=== PATIENT | female | born 1950 | race Caucasian/White ===

== ENCOUNTER 2020-07-15 09:44 | Inpatient (IN) | payer OTHER ==
[~2020-07-15] VITALS: Ht 154.9 cm; Wt 70.9 kg
[2020-07-15 10:05] LABS: ABSOLUTE NEUTROPHILS 9.1 thou/uL (1.4-8.2); BASOPHILS 0.4 % (0.0-2.0); HEMATOCRIT 42.7 % (37.0-47.0); HEMOGLOBIN 14.4 gm/dL (12.0-15.0); LYMPHOCYTES 10.3 % (24.0-44.0); MCH 31.4 pg (26.0-34.0); MCHC 33.7 g/dL (28.0-37.0); PLATELET COUNT 244 thou/uL (150-400); POLYS 79.3 % (36.0-66.0); RBC 4.59 mil/uL (4.20-5.00); RDW 12.8 % (10.5-14.5); WBC 11.5 thou/uL (4.0-11.0)
[2020-07-15 10:21] LABS: ANION GAP 13 mmol/L (7-16); BUN 20 mg/dL (7-18); CALCIUM 9.3 mg/dL (8.5-10.1); CHLORIDE 106 mmol/L (98-107); CO2 22 mmol/L (21-32); CREATININE 0.8 mg/dL (0.6-1.0); GLUCOSE 112 mg/dL (74-106); POTASSIUM 3.8 mmol/L (3.5-5.1); SODIUM 141 mmol/L (136-145)
[2020-07-15 10:29] LABS: ALBUMIN 3.4 g/dL (3.4-5.0); SGOT 18 U/L (15-37); SGPT 23 U/L (14-59); TOTAL BILIRUBIN 0.6 mg/dL (0.2-1.0); TOTAL PROTEIN 6.9 g/dL (6.4-8.2); TROPONIN-I <0.06 ng/mL (<0.06)
[2020-07-15 11:34] LABS: URINE BLOOD TRACE (Negative); URINE CLARITY CLEAR; URINE COLOR YELLOW; URINE GLUCOSE-RANDOM* NEGATIVE (Negative); URINE KETONES 3+ (Negative); URINE LEUKOCYTES-REFLEX NEGATIVE (Negative); URINE NITRITE-REFLEX NEGATIVE (Negative); URINE PROTEIN (DIPSTICK) NEGATIVE (Negative); URINE SPECIFIC GRAVITY >= 1.030 (1.005-1.035); URINE UROBILINOGEN 0.2 E.U./dl (0.2-1.0)
[2020-07-15 11:37] LABS: ICTOTEST (BILI CONFIRMATORY) Negative (Negative); URINE BILIRUBIN NEGATIVE (Negative)
[2020-07-15 11:38] LABS: URINE REDUCING SUBSTANCE NEGATIVE
--- NOTE | 2020-07-15 12:08 | EKG ---
[address] [address] [address] [place] [address] ELECTROCARDIOGRAM REPORT Name: FRANCINE WATT [id number] Admission: 07/15/20 Attend Phys: Discharge: Date of : 48 Report #: [id number] [facility] ED Test Date: 2020-07-15 Test Time: 10:11:44 Pat Name: FRANCINE WATT Department: Room: Gender: F Broadcast Supervisor: Chepe LEARY : 1950 Requested By: Gabriel Mac Order Number: [id number] MD: Rob Mooney Measurements Intervals [place] Rate: 66 P: 11 [place]: 154 QRS: -11 QRSD: 94 T: 254 QT: 497 QTc: 521 Interpretive Statements Sinus rhythm RSR' in V1 or V2, probably normal variant Abnormal T, probable ischemia, widespread Prolonged QT interval Compared to ECG 12/16/2001 11:14:16 RSR' in V1 or V2 now present T-wave abnormality now present Possible ischemia now present Prolonged QT interval now present Electronically Signed On 07-15-2020 12:07:52 CDT by Rob Mooney [email or web address] <ELECTRONICALLY SIGNED> By: Rob Mooney MD, FACC 07/15/20 1207 1011 1011 Rob Mooney MD, [facility] /EPI
[2020-07-15 12:49] VITALS: BP 141/57
[2020-07-15 15:57] LABS: PROTIME 10.4 Seconds (9.3-11.4)
--- NOTE | 2020-07-15 18:45 | NUR ---
Received pt fron the ED, lert and oriented x 4. Pt is bed bound pain is severe and very small movements cause severe pain confirmed T12 compression. Seen by IR (Dr. Kerr) for MRI and Kypho / Vertibroplasty tomorrow. CAR RETARDER OPERATOR manged care today and all other intervention aside from admission system assessment.
[2020-07-15 19:11] VITALS: BP 136/63
--- NOTE | 2020-07-15 19:40 | NUR ---
ASSUMED CARE OF PT FROM ER AT 1357 THIS AFTERNOON. PT IS A/OX4, STATED SHE WAS IN HER BED AND UNABLE TO MOVE FOR 4 DAYS. PT IS DEHYDRATED AND MALNURISHED DUE TO INABILILTY TO EAT OR DRINK. EYES PERRLA, LUNGS CLEAR ALL LOBES, SKIN INTACT AND TENTING. PAIN RATED AT A 3 ON 1/10 SCALE IN LOWER BACK WHERE T12 IS FX'D. 10 [address] MOVING. SCD'S IN PLACE, VSS, ASSESSMENT OTHERWISE UNREMARKABLE. PT HAS CALL LIGHT AND OTHER NEEDS WITHIN REACH.
[2020-07-15] MEDS ORDERED: TOPAMAX 25 MG T25 M1 PO (20:36)
[2020-07-15] MEDS ORDERED: METOPROLOL SUC100 MG PO (20:36)
[2020-07-15] MEDS ORDERED: LEVOTHYROXINE100 MCG PO (20:37)
[2020-07-15] MEDS ORDERED: ALPRAZOLAM2 MG PO (20:38)
[2020-07-15] MEDS ORDERED: BUPROPION HCL150 M1 PO (20:40)
[2020-07-16] VITALS (10 sets, daily range): BP systolic 107–185; BP diastolic 54–114
--- NOTE | 2020-07-16 00:55 | NUR ---
ASSESSED AT STARTOF SHIFT 1899, PT RESTING IN BED RATES PAIN10/10 WITH MOVEMENT HYDROCODONE GIVEN. PT HAD A BM THIS SHIFT SOFT AND BLACK STOOL NOTED. IV INTACT AND FLUIDS INFUISING. PT ON fall PREC MAINTAINED AND CALL LIGHT AT REACH. PT TO HAVE MRI TOMORROW. WILL CONT TO MONITOR.
[2020-07-16 05:36] LABS: HEMATOCRIT 38.7 % (37.0-47.0); HEMOGLOBIN 12.8 gm/dL (12.0-15.0); MCH 31.4 pg (26.0-34.0); MCHC 33.2 g/dL (28.0-37.0); MCV 94.5 fL (80.0-100.0); RBC 4.09 mil/uL (4.20-5.00); RDW 12.9 % (10.5-14.5); WBC 7.7 thou/uL (4.0-11.0)
[2020-07-16 06:29] LABS: CALCIUM 8.2 mg/dL (8.5-10.1); CREATININE 0.8 mg/dL (0.6-1.0); POTASSIUM 3.7 mmol/L (3.5-5.1)
--- NOTE | 2020-07-16 10:48 | NUR ---
ASSESSMENT: CM REVIEWED CHART AND SPOKE WITH PATIENT. PT WAS ADMITTED AFTER A FALL ABOUT 5 DAYS AGO AND HAS A COMPRESSION FX. PT LIVES IN A HOUSE ALONE. PT REPORTS HAVING ABOUT 2 STEPS WITH NO HANDRAILS TO ENTER. PT REPORTS ABOUT 14 STEPS WITH HANDRAILS TO GET TO HER BEDROOM. PT REPORTS SHE NORMALLY AMBULATES INDEPENDENTLY BUT DOES HAVE HER MOMS OLD WALKER IF NEEDED. PT REPORTS THAT SHE HAS NO HX OF HH OR SNF. PT REPORTS THAT HER SON LIVES IN [place] AND SINCE SHE FELL SHE THINKS HE IS COMING INTO TOWN. CM ATTEMPTED TO REACH HER SON MEENA BUT UNABLE TO AND VM WAS LEFT. PT ALSO HAD A CT COMPLETED AND AN OVARIAN MASS WAS FOUND THAT IS CONCERNING. ONCOLOGY IS CONSULTED. PLANS ARE FOR LIKELY KYPHO TODAY AFTER MRI. PT/OT PENDING UNTIL KYO. CM DISCUSSED POSSIBLE NEED FOR HH/SNF AND PT STATES SHE WILL SEE HOW SHE DOES POST SURGERY. CM WILL CONTINUE TO FOLLOW TO ASSIST NEEDED.
--- NOTE | 2020-07-16 12:45 | NUR ---
PT ALERT AND ORIENTED TIMES FOUR. VSS. PT C/O BACK PAIN. PRN PAIN MEDICATIONS GIVEN WITH SOME RELEIF AT THE START OF THE SHIFT. PT CURRENTLY OFF THE UNIT FOR MRI AND KYPHOPLASTY. WILL CONTINUE TO MONITOR.
--- NOTE | 2020-07-16 12:57 | NUR ---
SD POST KYPHOPLASTY. TOLERATED PROCEDURE WELL. VSS. REPORT CALLED TO BENITA. PT TRX TO ROOM STABLE CONDITION.
--- NOTE | 2020-07-16 13:17 | NUR ---
ASSESSMENT: CM REVIEWED CHART AND SPOKE WITH PATIENT. PT WAS ADMITTED AFTER A FALL ABOUT 5 DAYS AGO AND HAS A COMPRESSION FX. PT LIVES IN A HOUSE ALONE. PT REPORTS HAVING ABOUT 2 STEPS WITH NO HANDRAILS TO ENTER. PT REPORTS ABOUT 14 STEPS WITH HANDRAILS TO GET TO HER BEDROOM. PT REPORTS SHE NORMALLY AMBULATES INDEPENDENTLY BUT DOES HAVE HER MOMS OLD WALKER IF NEEDED. PT REPORTS THAT SHE HAS NO HX OF HH OR SNF. PT REPORTS THAT HER SON LIVES IN [place] AND SINCE SHE FELL SHE THINKS HE IS COMING INTO TOWN. CM ATTEMPTED TO REACH HER SON MEENA BUT UNABLE TO AND VM WAS LEFT. PT ALSO HAD A CT COMPLETED AND AN OVARIAN MASS WAS FOUND THAT IS CONCERNING. ONCOLOGY IS CONSULTED. PLANS ARE FOR LIKELY KYPHO TODAY AFTER MRI. PT/OT PENDING UNTIL KYO. CM DISCUSSED POSSIBLE NEED FOR HH/SNF AND PT STATES SHE WILL SEE HOW SHE DOES POST SURGERY. CM WILL CONTINUE TO FOLLOW TO ASSIST NEEDED.
--- NOTE | 2020-07-17 03:55 | NUR ---
RECEIVED CARE OF THIS PATIENT AT 1900. PATIENT ALERT AND ORIENTED X4 AT BEGINNING OF SHIFT. SHIFT CONTINUED PATIENT BECAME VERY AGITATED AND ANXIOUS. ACUSED NURSE OF LYING TO HER, CALLING HER A LYER AND TRYING TO POISEN HER. WOULD NOT LISTEN TO NURSE WHEN TRIED TO EXPLAIN THINGS TO HER. TOOK WHAT THE NURSE SAID AND TWISTED THE WORDS. HIM TECH WAS TALKING WITH PATIENT FOR SEVERAL MINUTES. PATIENT ACUSED NURSE OF NOT WANTING TO GIVE HER PAIN MED. GAVE IT EVERY TIME IT WAS ASKED FOR. PATIENT DID NOT SLEEP MUCH THIS SHIFT.
[2020-07-17 09:49] VITALS: BP 119/54
--- NOTE | 2020-07-17 10:47 | NUR ---
Pt transferred from PACU this am. Denies pain. 3 Lap sites clean, dry, and well-approximated. Talked to pt's family and updated on pt's status. On 2L O2. Vital signs stable. Physical therapy will work with patient. Family at bedside. Call light within reach. Will continue to monitor.
[2020-07-17 11:24] VITALS: BP 110/87
--- NOTE | 2020-07-17 13:37 | NUR ---
ON-GOING ASSESSMENT: CM REVIEWED CHART AND SPOKE WITH PATIENT AND HER SON. PT HAD KYPHOPLASTY YESTERDAY AND WAS DOWN HAVING BIOPSY THIS AM AND AWAITING PATHOLOGY. PHYSICAL THEARPY WORKED WITH PATIENT AND RECOMMENDING POST ACUTE CARE. CM SPOKE WITH PT AND HER SON MEENA ABOUT POST ACUTE CARE AT THE BEDSIDE AND PROVIDED THEM WITH A SNF LIST TO REVIEW WITH POSSIBLE OPTIONS. SON MEENA CAN BE REACHED AT [phone] (HE CURRENTLY CAME IN TOWN FROM [place] WHERE HE LIVES TO ASSIST NEEDED).
[2020-07-17 17:09] VITALS: BP 146/64
[2020-07-17 19:18] VITALS: BP 150/57
--- NOTE | 2020-07-18 04:26 | NUR ---
AASUMED PT CARE AT 1900.PT WAS ALERT/CONFUSED/PARANOID AND WAS VISIBLY UPSET AT SHIFT CHANGE.PT C/O HOW HER NIGHT WAS THE PREVIOUS ALL NIGHT.PT CALLED HER FRIEND AT HOME A COUPLE OF TIMES TELLING HER THAT SHE WANTS TO GO HOME.PT'S FRIEND CALLS THE FACILITY EACH TIME TO RELAY THE MESSAGE.PT'S FRIEND CONCERNED ABOUT HER ACTIONS STATED THAT IT WAS UNLIKE HER TO BEHAVE THAT WAY.THIS NURSE REASSURED PT'S FRIEND THAT SHE WILL BE TAKEN GOOD CARE OF.PT WAS NOTED TO HAVE INCREASED ANXIETY SHE TRIES TO REMEMBER IF SHE HAS HAD HER SURGERY.PT WAS INFORMED THAT THE SURGERY HAD BEEN DONE.HEAVY CLEANER [employer] NOTIFIED THAT PT IS REQUESTING FOR HER XANAX,ORDER NOTED AND CARRIED OUT.PT ASLEEP ON HER BED AT THIS TIME.PT PULLED HER IV OUT EARLIER THIS SHIFT DUE TO HER ANXIETY,WILL REPLACE.CALL LIGHT WITHIN REACH.
[2020-07-18 06:43] VITALS: BP 137/63
[2020-07-18 07:10] VITALS: BP 140/57
[2020-07-18 09:24] LABS: HEMATOCRIT 36.5 % (37.0-47.0); HEMOGLOBIN 12.2 gm/dL (12.0-15.0); MCH 31.3 pg (26.0-34.0); MCHC 33.3 g/dL (28.0-37.0); MCV 93.9 fL (80.0-100.0); RBC 3.89 mil/uL (4.20-5.00); WBC 8.9 thou/uL (4.0-11.0)
[2020-07-18 09:47] LABS: CALCIUM 8.8 mg/dL (8.5-10.1); CREATININE 0.7 mg/dL (0.6-1.0); POTASSIUM 3.4 mmol/L (3.5-5.1)
--- NOTE | 2020-07-18 12:09 | NUR ---
ON-GOING ASSESSMENT: CM REVIEWED CHART AND SPOKE WITH PT AND HER SON. UPDATES WERE FAXED TO [employer] [facility] WHO HAS ALREADY STARTED THE AUTH PROCESS AND AWAITING A RESPONSE FROM INSURANCE AT THIS TIME. CM ALSO FAXED INFORMATION TO [employer] AND CONFIRMED THEY RECEIVED IT. [facility] AWAITING INPUT FROM INSURANCE. CAMI BARBOSA CAN BE REACHED AT [phone] AND CAN ACCEPT OVER THE WEEKEND IF THEY GET AUTH. [facility] CAN FACILITATE DISCHARGE IF AUTH IS RECEIVED OVER THE WEEKEND. CHART COPY WILL NEED TO BE SENT WITH PATIENT. PATIENTS SON MEENA CAN BE REACHED AT [phone], HE IS UPDATED ON THE PLAN AND WANTS TO BE CONTACTED IF PATIENT IS ABLE TO DISCHARGE. [facility] IS ABLE TO DISCHARGE OVER THE WEEKEND REPORT WILL NEED TO BE CALLED AND DISCHARGE PAPERWORK FAXED TO THE NUMBER BELOW. [email or web address] [id number] [facility] FAX:[phone]
--- NOTE | 2020-07-18 14:57 | NUR ---
ON-GOING ASSESSMENT: CM REVIEWED CHART. ANGÉLICA SPOKE WITH LIASON FROM [facility] WHO REPORTS THEY HAVE INSURANCE AUTH BUT CANNOT ACCEPT PATIENT UNTIL TOMORROW. THEY REQUEST TO [employer] AT 2PM TOMORROW 07/19/20. CM NOTIFIED BEDSIDE RN TO PASS ON TO OTHER RN. CM ALSO NOTIFIED ATTENDING TODAY. DISCHARGE ORDERS WILL NEED TO BE FAXED TO [phone] AND REPORT CALLED TO [phone]. CM NOTIFIED PT AND SON MEENA OF DISCHARGE. CHART COPY WILL NEED TO BE SENT WITH PATIENT. TRANSPORATION IS ARRANGED FOR 2PM, IF ANYTHING CHANGES CONTACT ADMISSIONS PHONE [phone].
--- NOTE | 2020-07-18 20:11 | NUR ---
ASSUMED CARE OF PATIENT AT SHIFT CHANGE. ASSESSMENT CHARTED. MEDS ADMINISTERED PER EMAR. VSS. PATIENT A&OX3-4 WITH SOME CONFUSION AND FORGETFULNESS. PATIENT VOICES PAIN 7/10 ON BACK RELIEVED BY PRN PO ANALGESIC. PATIENT WORKED W THX AND IS NOW AMBULATING SBA AND TOLERATING WELL. PATIENT CLEARED TO D/C TOMORROW W [facility] SCHEDULED PICKUP TIME AT 1400. IV IS OUT. ENDORSED TO OCTAVIA MELENDEZ.
[2020-07-18 20:50] VITALS: BP 160/73
--- NOTE | 2020-07-19 03:06 | NUR ---
PT WAS FRUSTRATED WITH NOT GETTING HER MECLIZINE BID AT START OF SHIFT.MED RECOINCILED AND RESTARTED BY AM NURSE.PT UP WITH ASSIST AND GB,GOOD ENDURANCE NOTED.PT C/O PAIN ON HER BACK AND ABD,MANAGED WITH MED.DRSG TO HER BACK AND ABD DRY AND INTACT.PT LOOKING FORWARD TO BE DC'S LATER IN THE DAY.CALL LIGHT WITHIN REACH.
[2020-07-19 08:13] VITALS: BP 154/68
[2020-07-19] MEDS ORDERED: HYDROCODON-ACE1 EAC7 PO (11:09)
--- NOTE | 2020-07-19 13:16 | NUR ---
ASSUMED PT CARE AROUND 0715. PT ALERT X ORIENTED 3-4, FORGETFUL AND CONFUSED. ON ROOM AIR. BRUISE IN LEFT HAND FROM ATTEMPTING IV. HAD A BM TODAY. GETTING DISCHARGED TO [facility]. RN CALLED THE FACILITY AND GAVE PT REPORT TO CHANDANA, THE NURSE AND THE ADMISSION WATER SPONGER SAID, THEY WILL BE HERE AT 1400 TO PICK HER. PT'S SON NOTIFIED. WILL CONT TO MONITOR.
== END 2020-07-19 14:18 | DRG 517 ==
LOC: ER 09:44 → EROBS 13:09 → 4S 13:09
PROVIDERS: Emergency Medicine; Internal Medicine; Nuclear Medicine Nuclear Cardiology; Surgery; ADMIT Hospitalist; ATTEND Hospitalist
PROC: 0PU43JZ Supplement Thoracic Vertebra with Synthetic Substitute, Percutaneous Approach (ICD-10-PCS; principal; 2020-07-16)
PROC: 0PS43ZZ Reposition Thoracic Vertebra, Percutaneous Approach (ICD-10-PCS; principal; 2020-07-16)
PROC: 0DBU4ZZ Excision of Omentum, Percutaneous Endoscopic Approach (ICD-10-PCS; 2020-07-17)
PROC: 0DNU4ZZ Release Omentum, Percutaneous Endoscopic Approach (ICD-10-PCS; 2020-07-17)
DX: S22.089A Unspecified fracture of T11-T12 vertebra, initial encounter for closed fracture (principal); R19.09 Other intra-abdominal and pelvic swelling, mass and lump; R19.00 Intra-abdominal and pelvic swelling, mass and lump, unspecified site; Z20.822 Contact with and (suspected) exposure to COVID-19; G43.909 Migraine, unspecified, not intractable, without status migrainosus; J44.9 Chronic obstructive pulmonary disease, unspecified; J45.909 Unspecified asthma, uncomplicated; E78.00 Pure hypercholesterolemia, unspecified; N83.9 Noninflammatory disorder of ovary, fallopian tube and broad ligament, unspecified; I10 Essential (primary) hypertension; Z60.2 Problems related to living alone; K66.0 Peritoneal adhesions (postprocedural) (postinfection); R53.81 Other malaise; F32.9 Major depressive disorder, single episode, unspecified; F41.9 Anxiety disorder, unspecified; D64.9 Anemia, unspecified; Z88.0 Allergy status to penicillin; Z88.8 Allergy status to other drugs, medicaments and biological substances; Z80.3 Family history of malignant neoplasm of breast; W18.39XA Other fall on same level, initial encounter; Y93.89 Activity, other specified; Y92.89 Other specified places as the place of occurrence of the external cause; Y99.8 Other external cause status
CPT/HCPCS: 10195; 50010; 50101; 50411; 50555; 51489; 52265; 53307; 53310; 54022; 54118; 56462; 56525; 56526; 57257; 58574; 58586; 62110; 62900; 70005